=== PATIENT | male | born 2000 | race Caucasian/White ===

== ENCOUNTER 2022-02-16 22:57 | Emergency (ER) | payer BC, SELFPAY ==
[2022-02-16 23:12] VITALS: BP 126/75; PULSE 96; RESP 18; TEMP 36.4; O2SAT 95
--- NOTE | 2022-02-16 23:18 | CRLHL7_ITS ---
For Patients: As a result of the Cures Act, medical imaging exams and procedure reports are released immediately into your electronic medical record. You may view this report before your referring provider. If you have questions, please contact your health care provider. Indication: Trauma. Technique: Left foot 3 views. Comparison: None. Findings: Bones: Alignment is normal. No fractures or bone lesions. Joint spaces: Unremarkable. Soft tissues: Unremarkable. Impression: No sign of acute injury. Dictated by Foreign Huntley MD @ 02/16/2022 11:49:14 PM (Electronically Signed)
--- NOTE | 2022-02-16 23:34 | ED_ITS ---
HPI - Extremity Injury (Lower) General Chief Complaint: Extremity Pain/Injury, Lower Stated Complaint: LEFT FOOT INJURY Time Seen by Provider: 02/16/22 23:07 History of Present Illness HPI Narrative: Pt is a 21 year old gentleman who rolled over his left foot while playing [place]. Pt has no ankle or knee pain but has pain centered around his lateral forefoot. Pt can not bear weight. No significant swelling or bruising noted. No treatments prior to arrival. No other symptoms. Pain is moderate in intensity. Related Data Home Medications Medication Instructions Recorded Confirmed escitalopram oxalate 10 mg tablet mg 02/16/22 estradiol 1 mg tablet mg 02/16/22 ibuprofen 02/16/22 methylphenidate HCl 36 mg mg PO 02/16/22 tablet,extended release 24 hr spironolactone 50 mg tablet mg 02/16/22 Allergies Allergy/AdvReac Type Severity Reaction Status Date / Time loratadine [From Claritin] Allergy migraine Verified 02/16/22 23:16 Review of Systems Status of ROS: Reports: 10 or more systems reviewed and unremarkable except as noted in History and below [facility] Social History Smoking Status: Never smoker How often do you have a drink containing alcohol: never AUDIT-C Alcohol total score: 0 Non-prescribed substance use: denies use Exam Narrative: Exam Narrative: EXAM GENERAL: Patient appears comfortable and well. EYES: No scleral icterus. ENT: Tympanic membranes and oropharynx normal. THYROID: no thyroid nodules or thyromegaly. LYMPH: No supraclavicular or cervical lymphadenopathy. SKIN: Visible skin seen during exam normal or with benign process only. EXT: No dependent lower extremity pedal edema. Left foot and ankle normal to inspection. HEART: Regular rate and rhythm with no murmurs, rubs, or gallops. LUNGS: Clear to auscultation bilaterally with no crackles or wheezes. ABD: Soft, non tender, non distended. PSYCH: Good eye contact, speech is not pressured. Const: Vital Signs, click to edit/add: Vital Signs - 24 hr 02/16/22 23:12 Temperature 97.6 F Pulse Rate [Right Pulse Oximeter] 96 Respiratory Rate 18 Blood Pressure [Le ft Upper Arm] 1/1 L Pulse Oximetry 95 Oxygen Delivery Me thod Room Air Course Course Hospital Course: X ray of the left foot normal upon my review. Vital Signs Vital signs: Initial Vital Signs Temperature 97.6 F 02/16/22 23:12 Temperature Source Temporal Artery Scan 02/16/22 23:12 Pulse Rate 96 02/16/22 23:12 Respiratory Rate 18 02/16/22 23:12 Blood Pressure 1/1 L 02/16/22 23:12 Blood Pressure Mean 1 02/16/22 23:12 Blood Pressure Position Sitting 02/16/22 23:12 Pulse Oximetry 95 02/16/22 23:12 Oxygen Delivery Method 02/16/22 23:12 Vital Signs Temperature 97.6 F 02/16/22 23:12 Pulse Rate 96 02/16/22 23:12 Respiratory Rate 18 02/16/22 23:12 Blood Pressure 1/1 L 02/16/22 23:12 Pulse Oximetry 95 02/16/22 23:12 Oxygen Delivery Method 02/16/22 23:12 Temperature 97.6 F 02/16/22 23:12 Pulse Rate 96 02/16/22 23:12 Respiratory Rate 18 02/16/22 23:12 Blood Pressure 1/1 L 02/16/22 23:12 Pulse Oximetry 95 02/16/22 23:12 Oxygen Delivery Method 02/16/22 23:12 MDM - Extremity Injury (Lower) MDM Narrative Medical decision making narrative: Pt is a 21 year old person who twisted their left foot. No fracture upon my review. Treat with Rest Compression Elevation, Ice, Crutches, Tylenol and Motrin Differential Diagnosis Differential diagnosis: Likely ankle sprain and strain and fracture of toe Discharge Plan Discharge Clinical Impression: Foot sprain Condition: Stable Instructions: Foot Sprain (ED) Additional Instructions: Rest Ice Compression Elevation Crutches as needed Tylenol Motrin Activity Level: No Restrictions Discharge Diet: Regular Prescriptions: No Action estradiol 1 mg tablet Label Comments: DISSOLVE 1 TABLET UNDER THE TONGUE IN THE MORNING AND 2 TABLETS UNDER THE TONGUE AT NIGHT EVERY DAY methylphenidate HCl 36 mg tablet extended release 24hr PO Label Comments: TAKE ONE TABLET BY MOUTH ONE TIME DAILY spironolactone 50 mg tablet Label Comments: TAKE ONE TABLET BY MOUTH TWICE DAILY escitalopram oxalate 10 mg tablet Label Comments: TAKE ONE TABLET BY MOUTH ONE TIME DAILY ibuprofen Stand Alone Forms: MyHealth Info Instructions
--- OUTSIDE RECORDS SUMMARY | 2022-02-16 23:56 | XMS_ITS | Clinical Summary ---
:2000 Author Organization [facility] [place] [address] Care Team Providers Name Role Phone Pcp, No Primary Care Provider Unavailable Allergies No known active allergies Medications Medication Sig Dispensed Refills Start Date End Date Status benzonatate (TESSALON) Take 1 capsule by 30 capsule 0 07/08/19 20 Active 100 mg mouth 3 times capsuleIndications: daily if needed Bronchitis for Cough. Active Problems Not on file Social History Tobacco Use Types Packs/Day Years Used Date Never Smoker Smokeless Tobacco: Never Used Alcohol Use Standard Drinks/Week Comments Yes 0 (1 standard drink = 0.6 oz pure alcoho l) socially Alcohol Habits Answer Date Recorded How often do you have a drink containing alcohol? Not asked How many drinks containing alcohol do you have on a typical Not asked day when you are drinking? How often do you have six or more drinks on one occasion? No t asked Comment: socially 07/08/2019 Sex Assigned at Date Recorded Not on file Obstetrics History Last Filed Vital Signs Vital Sign Reading Time Taken Comments Blood Pressure 127/80 07/08/2019 1:31 PM [employer] Pulse 86 07/08/2019 1:31 PM [employer] Temperature 37 ??C (98.6 ??F) 07/08/2019 1:31 PM [employer] Respiratory Rate - - Oxygen Saturation 97% 07/08/2019 1:31 PM [employer] Inhaled Oxygen Concentration - - Weight 88.2 kg (194 lb 6.4 oz) 07/08/2019 1:31 PM [employer] Height 181 cm (5' 11.26) 07/08/2019 1:31 PM [employer] Body Mass Index 26.92 07/08/2019 1:31 PM [employer] Plan of Treatment Health Maintenance Due Date Last Done Comments COVID-19 vaccine series (#1) 05/01/1999 HPV series for age 9-26 (1 - Male 2-dose series) 2009 Tdap 2009 Depression screening for age 12+ 2010 Hepatitis C screening for age 18-79 2016 Tetanus booster 2018 BMI (ht and wt on same day) for age 18+ 07/07/2020 07/08/19 20 Influenza for age 9-49 01/08/2022 Results Not on filefrom Last 3 Months Insurance Payer Benefit Plan / Subscriber ID Effective Dates Phone Addre ss Type Group [employer] OF [id number] 2017-Present [address] [address] [place] [address] Care Teams [employer] Operator Relationship Specialty Start Date End Date Pcp, No PCP - General 07/08/19 .
== END 2022-02-17 00:30 | disposition home or self-care (01) ==
PROVIDERS: Emergency Provider Internal Medicine
DX: S93.402A Sprain of unspecified ligament of left ankle, initial encounter (principal); X50.1XXA Overexertion from prolonged static or awkward postures, initial encounter; Y93.73 Activity, racquet and hand sports
CPT/HCPCS: 73630; 99283